=== PATIENT | female | born 1950 | race Caucasian/White ===

== ENCOUNTER → 2016-11-10 | Outpatient (CLI) | payer OTHER ==
[~2016-11-10] MED LIST: ASCORBIC ACID500 M2 PO; COMPLEXED POTAS99 MG PO; CRESTOR10 MG PO; KEFLEX 500MG.500 MG PO; LORATADINE 10MG10 M1 PO; NIFEDIPINE XL 330 MG PO; RANITIDINE 7575 MG PO; ZYRTEC10 MG PO
--- NOTE | 2016-11-14 10:02 | RADIOLOGY REPORT PS360 ---
US THYROID HISTORY: THYROID NODULE 6 MONTH F/U ORDERING PHYSICIAN: Stephani HOOK PATIENT AGE: 65 years COMPARISON: None FINDINGS: The right lobe measures 3. 1.5 x 2.5 cm. The left lobe measures 3.7 x 1.3 x 3 cm. On the right there is a 4 mm hypoechoic nodule superiorly labeled as nodule a unchanged. On the left previously noted 5 mm nodule inferiorly not identified on today's exam. No new nodules evident. IMPRESSION: 1. No new or enlarging thyroid nodules. 2. Normal thyroid size.
== END ==
LOC: RAD 14:34
DX: E04.1 Nontoxic single thyroid nodule (principal); Z09 Encounter for follow-up examination after completed treatment for conditions other than malignant neoplasm

== ENCOUNTER → 2016-12-13 | Outpatient (CLI) | payer MEDICARE, OTHER ==
--- NOTE | 2016-12-13 11:44 | RADIOLOGY REPORT PS360 ---
US RUQ-(ABD LTD)1ORGAN/QUAD/FU HISTORY: ELEVATED LIVER ENZYMES, prior cholecystectomy ORDERING PHYSICIAN: Abdi Magana MD PATIENT AGE: 65 years COMPARISON: None FINDINGS: PANCREAS: Unremarkable. No obvious mass or abnormal fluid collection. No ductal dilatation LIVER: Fatty liver. No focal liver lesion demonstrated. Hepatopedal portal blood flow with no evidence of portal vein enlargement. No biliary dilatation RIGHT KIDNEY: Unremarkable. Normal size and echogenicity. No hydronephrosis GALLBLADDER: Cholecystectomy. Common bile duct is normal at 5 mm. IMPRESSION: Prior cholecystectomy with fatty liver otherwise negative
== END ==
LOC: RAD 07:55
DX: R74.8 Abnormal levels of other serum enzymes (principal)